=== PATIENT | male | born 1960 | race Caucasian/White ===

== ENCOUNTER → 2016-12-09 | Outpatient (CLI) | payer BC ==
[~2016-12-09] MED LIST: COZAAR; DORYX PO; FLOMAX0.4 M1 PO; FLOMAX0.4 MG PO; LEVAQUIN PO; LIPITOR PO; LORTAB 5/500 TA1 TA1 PO; MACROBID100 MG PO; PERCOCET5/325 PO
--- NOTE | ~2016-12-09 | US6 ---
[facility] A Service of [facility] & [facility] / [facility] RADIOLOGY TEXT RESULTS PATIENT: CRICKET BRAGA LOCATION: SGUS : 64 UNIT #: [id number] AGE: [address]: VARUN HARRIS MD SEX: M ORDER DR: [id number] [place] [id number] O MR#: [id number] Acc #: [id number] NAME: CRICKET BRAGA : 1960 SEX: M STUDY DATE/TIME: 12/09/2016 8:24 UNIT: SG ROOM: STUDY DESCRIPTION: US Abdominal Limited Attending Physician: Angeline Harris M.D. Referring Physician: Angeline Harris M.D. Ordering Physician: Angeline Harris M.D. Primary Care Physician: Angeline Harris M.D. MEDICAL IMAGING REPORT This report is preliminary unless electronic signature is present. EXAM Right upper quadrant ultrasound 12/09/2016 HISTORY Abnormal elevated liver function tests identified on prior labs from December 02, 2016. TECHNIQUE Lambert-scale and color Doppler sonographic images were obtained through the right upper quadrant. FINDINGS Pancreas is not well seen on the submitted images. Liver is enlarged measuring up to 16.9 cm in craniocaudal dimensions. The main portal vein is patent. Patient does have diffuse hepatic steatosis but no definite focal hepatic lesions are seen. Gallbladder is normal in appearance. No stones or sludge are identified. There is no gallbladder wall thickening or pericholecystic fluid. Right kidney also appears normal with no solid or cystic renal masses seen and no hydronephrosis identified. IMPRESSION 1. Diffuse hepatic steatosis and hepatomegaly. 2. Pancreas cannot be seen due to overlying bowel gas. Dictated by... Shari Newton M.D. THIS IS AN ELECTRONICALLY VERIFIED REPORT Shari Newton M.D. at 12/13/2016 8:02 AM MANOLO/isabel TD: 12/09/2016 17:29 JOB #: [id number] [facility] A Service of [facility] & [facility] / [facility] RADIOLOGY TEXT RESULTS PATIENT: CRICKET BRAGA LOCATION: [facility] #: [id number] : 64 UNIT #: [id number] AGE: [address]: VARUN HARRIS MD SEX: M ORDER DR: MEDICAL IMAGING REPORT Page 1 of 1
== END | disposition home or self-care (01) ==
LOC: SGUS 07:50
DX: R74.0 Nonspecific elevation of levels of transaminase and lactic acid dehydrogenase [LDH] (principal); K76.0 Fatty (change of) liver, not elsewhere classified; R16.0 Hepatomegaly, not elsewhere classified
CPT/HCPCS: 76705